=== PATIENT | male | born 1965 | race Hispanic/Latino ===

== ENCOUNTER 2018-02-16 12:49 | Emergency (ER) | payer BC ==
[2018-02-16 12:56] VITALS: BP 128/88; PULSE 66; RESP 18; TEMP 98.2; O2SAT 98
--- NOTE | 2018-02-16 13:13 | ED PDOC ---
Upper Extremity Pain/Injury Time Seen by Provider: 02/16/18 12:52 Chief Complaint (Nursing): Upper Extremity Problem/Injury History Per: Patient Onset/Duration Of Symptoms: Days (2) Current Symptoms Are (Timing): Still Present Severity: Moderate Exacerbating Factor(s): Movement Additional Complaint(s): Pain and swelling right hand after punching wall Tuesday night. Seen in ED [facility] and Dx'ed with fracture right hand/trapezius. Past Medical History Vital Signs: Last Vital Signs Temp 98.2 F 02/16/18 12:52 Pulse 66 02/16/18 12:52 Resp 18 02/16/18 12:52 BP 128/88 02/16/18 12:52 Pulse Ox 98 02/16/18 12:52 - Medical History PMH: No Chronic Diseases - Family History Family History: States: Unknown Family Hx - Home Medications Home Medications: Ambulatory Orders Medication Instructions Recorded No Known Home Med 02/16/18 - Allergies Allergies/Adverse Reactions: Allergies Allergy/AdvReac Type Severity Reaction Status Date / Time No Known Allergies Allergy Verified 02/16/18 12:52 Review of Systems Musculoskeletal: Positive for: Hand Pain Neurological: Positive for: Numbness. Negative for: Weakness Physical Exam - Physical Exam Appears: Positive for: Non-toxic, No Acute Distress Skin: Positive for: Normal Color, Warm, DRY Extremity: Positive for: Other (Right hand swelling and tenderness across carpal bones. Cap refill <2 sec. Unable to flex hand secondary to swelling. No parasthesias) Neurologic/Psych: Positive for: Alert, Oriented. Negative for: Motor/Sensory Deficits - ECG O2 Sat by Pulse Oximetry: 98 Medical Decision Making Medical Decision Making: Time 14:06 Right Wrist X-Ray FINDINGS: BONES: Hamate fracture seen on the lateral view but confirmed on the AP view. JOINTS: Normal. No dislocation. SOFT TISSUES: Soft tissue swelling with fracture fragments likely emanating from hamate bone. The finding is marked on the study for review. OTHER FINDINGS: None. IMPRESSION: Avulsion fracture hamate bone. Soft tissue swelling attests to the acuity of the fracture. Time: 14:02 Right Hand X-Ray FINDINGS: BONES: Normal. No fracture. JOINTS: Normal. No osteoarthritic changes. SOFT TISSUES: Soft tissue swelling dorsal aspect at the level of the metacarpals. No visulaized radiopaque/visualized foreign body. OTHER FINDINGS: None. IMPRESSION: Soft tissue swelling without acute articular or osseous abnormality. Scribe Attestation: Documented by Wilner Beasley, acting as a scribe for Rafat Joyce MD Disposition - Clinical Impression Clinical Impression: Hand fracture - Patient ED Disposition Is Patient to be Admitted: Transfer of Care - Disposition Disposition: Transfer of Care Disposition Time: 15:06 Condition: FAIR Forms: Impinj (Cameroonian) Patient Signed Over To: Darryl Marinelli
--- NOTE | 2018-02-16 14:06 | RAD ---
PROCEDURE: Right Hand Radiographs. HISTORY: trauma COMPARISON: None. FINDINGS: BONES: Normal. No fracture. JOINTS: Normal. No osteoarthritic changes. SOFT TISSUES: Soft tissue swelling dorsal aspect at the level of the metacarpals. No visulaized radiopaque/visualized foreign body. OTHER FINDINGS: None. IMPRESSION: Soft tissue swelling without acute articular or osseous abnormality.
--- NOTE | 2018-02-16 14:08 | RAD ---
PROCEDURE: Right Wrist Radiographs. HISTORY: Trauma. Anatomic area of interest: Lateral aspect right hand at the level of the proximal metacarpals COMPARISON: February 16, 2018. FINDINGS: BONES: Hamate fracture seen on the lateral view but confirmed on the AP view. JOINTS: Normal. No dislocation. SOFT TISSUES: Soft tissue swelling with fracture fragments likely emanating from hamate bone. The finding is marked on the study for review. OTHER FINDINGS: None. IMPRESSION: Avulsion fracture hamate bone. Soft tissue swelling attests to the acuity of the fracture.
--- NOTE | 2018-02-16 15:15 | ED PDOC ---
- ECG O2 Sat by Pulse Oximetry: 98 Medical Decision Making Medical Decision Making: Patient signed out to me by Dr. Joyce @ 15:00, pending CT EXT Upper w/o contrast RIGHT. Time: 1609 -- Patient was seen by Dr. Toribio in the ER who reviewed the images and casted. Patient is stable for discharge and will follow up with Dr. Toribio tomorrow. Scribe Attestation: Documented by Wilner Beasley, acting as a scribe for Darryl Marinelli MD. Provider Scribe Attestation: All medical record entries made by the Scribe were at my direction and personally dictated by me. I have reviewed the chart and agree that the record accurately reflects my personal performance of the history, physical exam, medical decision making, and the department course for this patient. I have also personally directed, reviewed, and agree with the discharge instructions and disposition. Disposition Counseled Patient/Family Regarding: Studies Performed, Diagnosis, Need For Followup - Clinical Impression Clinical Impression: Hand fracture - POA Present On Arrival: None - Disposition Referrals: Clinical Medical Transcriptionist Service [Outside] Titi Hayes MD [Medical Doctor] - Disposition: AGAINST MEDICAL ADVICE Disposition Time: 17:00 Condition: IMPROVED Additional Instructions: follow up with Dr Hayes tomorrow in his office. return to the ED with any worsening or concerning symptoms Prescriptions: Tramadol HCl [Ultram] 50 mg PO TID PRN #6 tablet PRN Reason: Pain, Moderate (4-7) Instructions: Hand Fracture Forms: TopVisible (Nepali)
--- NOTE | 2018-02-16 17:20 | CT ---
CT right wrist History: Fracture. Comparison: 02/16/2018 Technique: Multiple contiguous axial images were performed through the right wrist without the use of intravenous contrast. Subsequently, sagittal and coronal reformatted images were obtained. This CT exam was performed using one or more of the following dose reduction techniques: Automated exposure control, adjustment of the mA and/or kV according to patient size, and/or use of iterative reconstruction technique. Findings: Large comminuted distracted and displaced intra-articular fracture at the dorsal base of the 3rd metatarsal bone. Fracture fragment measures 1.2 centimeters. The fracture is displaced approximately 9 millimeters from the fracture site. Degenerative changes noted at the 1st carpometacarpal joint space with subluxation of the 1st metacarpal bone in relationship to the trapezium. 4 millimeter subchondral cyst formation within the proximal pole of the capitate. Question mild rotary subluxation of the lunate in relationship to the capitate bone. Clinical correlation. Prominent soft tissue swelling and edema seen at the dorsum of the wrist. Impression: 1. Large comminuted distracted and displaced intra-articular fracture at the dorsal base of the 3rd metatarsal bone. Fracture fragment measures 1.2 centimeters. The fracture is displaced approximately 9 millimeters from the fracture site. 2. Degenerative changes noted at the 1st carpometacarpal joint space with subluxation of the 1st metacarpal bone in relationship to the trapezium. 3. 4 millimeter subchondral cyst formation within the proximal pole of the capitate. 4. Question mild rotary subluxation of the lunate in relationship to the capitate bone. Clinical correlation. 5. Prominent soft tissue swelling and edema seen at the dorsum of the wrist.
== END 2018-02-16 16:30 | disposition home or self-care (01) ==
LOC: H.ER 12:49
DX: Z47.89 Encounter for other orthopedic aftercare (principal)

== ENCOUNTER 2018-04-06 10:36 | Inpatient (IN) | payer BC ==
[2018-04-06 10:45] VITALS: BMI 31.8
--- NOTE | 2018-04-06 11:10 | ED PDOC ---
Upper Extremity Pain/Injury Time Seen by Provider: 04/06/18 11:03 Chief Complaint (Nursing): Finger,Hand,&Wrist Chief Complaint (Provider): WRIST FX History Per: Patient (52 Y/O MALE WITH H/O WRIST FX 02/14 HERE FOR WRIST PAIN. PATIENT HAS BEEN IN PHYSICAL THERAPY AND FEELS IF BONE IS 'PROTRUDING' FROM SKIN. DENIES ANY FEVERS/CHILLS.) Past Medical History Reviewed: Historical Data, Nursing Documentation, Vital Signs Vital Signs: Last Vital Signs Temp 98 F 04/06/18 10:45 Pulse 82 04/06/18 10:45 Resp 16 04/06/18 10:45 BP 122/85 04/06/18 10:45 Pulse Ox 98 04/06/18 10:45 - Surgical History Surgical History: Tonsillectomy - Family History Family History: States: Unknown Family Hx - Home Medications Home Medications: Ambulatory Orders Medication Instructions Recorded No Known Home Med 04/06/18 - Allergies Allergies/Adverse Reactions: Allergies Allergy/AdvReac Type Severity Reaction Status Date / Time No Known Allergies Allergy Verified 02/16/18 12:52 Review of Systems ROS Statement: Except As Marked, All Systems Reviewed And Found Negative Physical Exam - Reviewed Nursing Documentation Reviewed: Yes Vital Signs Reviewed: Yes - Physical Exam Appears: Positive for: Well, Non-toxic, No Acute Distress Head Exam: Positive for: ATRAUMATIC, NORMAL INSPECTION, NORMOCEPHALIC Skin: Positive for: Normal Color, Warm, DRY Eye Exam: Positive for: EOMI, Normal appearance, PERRL ENT: Positive for: Normal ENT Inspection Neck: Positive for: Normal, Painless ROM Cardiovascular/Chest: Positive for: Regular Rate, Rhythm Respiratory: Positive for: CNT, Normal Breath Sounds Gastrointestinal/Abdominal: Positive for: Normal Exam, Soft Back: Positive for: Normal Inspection Extremity: Positive for: Normal ROM, Other (MILD SWELLING OF HAND. ABLE TO MOVE DIGITS. GOOD CAPILLARY REFILL. IN REMOVABLE VELCRO WRIST SPLINT.) Neurologic/Psych: Positive for: Alert, Oriented - Laboratory Results Result Diagrams: 04/06/18 11:45 04/06/18 11:45 - ECG O2 Sat by Pulse Oximetry: 98 - Progress ED Course And Treament: XRY WRIST RIGHT: IMPRESSION: A large fracture fragment is seen in the distal dorsal right wrist soft tissues suggestive of a fragment from intra create room. The fracture is oriented more perpendicular to the axis of the carpus than previously shown on 02/16/2018. No dislocation or subluxation or additional fracture appreciable. Soft tissue edema surrounds the risk for greater dorsally than at the volar side. Disposition - Clinical Impression Clinical Impression: Wrist fracture, right - Patient ED Disposition Is Patient to be Admitted: Yes - Disposition Disposition Time: 11:25 Condition: FAIR - Pt Status Changed To: Hospital Disposition Of: Inpatient - Admit Certification Admit to Inpatient:: After my assessment, the patient will require hospitalization for at least two midnights. This is because of the severity of symptoms shown, intensity of services needed, and/or the medical risk in this patient being treated as an outpatient.
[2018-04-06 12:03] LABS: BASO # 0.1 K/uL (0.0-0.2); BASO % 1.5 % (0.0-2.0); EOS # 0.2 K/uL (0.0-0.7); EOS % 3.6 % (0.0-4.0); HEMOGLOBIN 13.9 g/dL (12.0-18.0); LYMPH # 1.2 K/uL (1.0-4.3); LYMPH % 24.4 % (20.0-40.0); MEAN CELL VOLUME 94.5 fl (80.0-94.0); MEAN CORPUSCULAR HEMOGLOBIN 32.8 pg (27.0-31.0); MEAN CORPUSCULAR HGB CONC 34.7 g/dL (33.0-37.0); MEAN PLATELET VOLUME 7.7 fl (7.2-11.7); MONO # 0.4 K/uL (0.0-0.8); NEUT # 3.1 K/uL (1.8-7.0); NEUT % 62.5 % (50.0-75.0); NRBC % 0.3 % (0.0-0.0); RBC 4.25 Mil/uL (4.40-5.90); WHITE BLOOD COUNT 4.9 K/uL (4.8-10.8)
--- NOTE | 2018-04-06 12:11 | RAD ---
PROCEDURE: Right Wrist Radiographs. HISTORY: WRIST PAIN COMPARISON: Left wrist radiographs 02/16/2018. FINDINGS: BONES: A dorsal fracture fragment remains in distal row level of the dorsal soft tissues triangular in shape and oriented perpendicular to the plane of the carpus with the tip quite superficial in location likely reflecting ununited fracture of the triquetrum. Soft tissue edema is seen diffusely but on a moderate basis throughout the dorsal greater than low volar soft tissues. Dorsal hand soft tissue may have completely resolved. JOINTS: No subluxation or dislocation. SOFT TISSUES: As above. OTHER FINDINGS: None. IMPRESSION: A large fracture fragment is seen in the distal dorsal right wrist soft tissues suggestive of a fragment from intra create room. The fracture is oriented more perpendicular to the axis of the carpus than previously shown on 02/16/2018. No dislocation or subluxation or additional fracture appreciable. Soft tissue edema surrounds the risk for greater dorsally than at the volar side.
[2018-04-06 12:14] LABS: INR 1.1 (0.9-1.2); PARTIAL THROMBOPLASTIN TIME 28.1 Seconds (25.6-37.1); PROTHROMBIN TIME 12.1 Seconds (9.8-13.1)
[2018-04-06 12:20] LABS: BLOOD UREA NITROGEN 14 mg/dl (9-20); CALCIUM 9.3 mg/dL (8.4-10.2); GFR AFRICAN-AMERICAN > 60; GFR NON-AFRICAN AMERICAN > 60
[2018-04-06] MEDS ORDERED: Lidocaine 2% MPF (5 ml) Inj ONE (12:21)
[2018-04-06] MEDS ORDERED: Succinylcholine 200 mg/10 ml Inj IV ONE (13:34)
[2018-04-06] MEDS ORDERED: Midazolam 2 MG/2 ML VIAL ONE (13:34)
[2018-04-06] MEDS ORDERED: Propofol 10 mg/ml Inj (20 ML) ONE (13:34)
[2018-04-06] MEDS ORDERED: Lidocaine 2% PF (10 ml) Amp ONE (13:36)
[2018-04-06] MEDS ORDERED: ePHEDrine 50 mg/ml Inj ONE (13:38)
[2018-04-06] MEDS ORDERED: Lactated Ringer's 1,000 ML IV ONE (13:41)
[2018-04-06] MEDS ORDERED: Bupivacaine HCl 0.25% PF (30 ml) Inj IJ ONE ×2 (14:01)
[2018-04-06] MEDS ORDERED: Lidocaine 2% Inj (20ml) IJ ONE ×2 (14:01)
[2018-04-06] MEDS ORDERED: Lactated Ringer's 500 ML IV ONE (15:30)
[2018-04-06 15:37] VITALS: RESP 18; O2SAT 96
[2018-04-06 16:12] VITALS: BP 131/80; PULSE 80; TEMP 97.9
--- NOTE | 2018-04-07 02:54 | OP ---
PROCEDURE DATE: 04/06/2018 SURGEON: Titi Hayes MD PACKAGING SALES: Donis Uriostegui MD PREOPERATIVE DIAGNOSES: 1. Open fracture of right third metacarpal base. 2. Open wound 3 cm in length. PROCEDURE: 1. Adjacent tissue local flap closure 3 cm in length, 14465. 2. Open treatment of metacarpal base fracture with ostectomy, 27623. 3. Extensor carpi radialis longus, side to side transfer to extensor carpi radialis brevis, 40640. 4. Local debridement of open fracture of muscle tendon, bone and skin, 31274. TYPE OF ANESTHESIA: General and local. ESTIMATED BLOOD LOSS: Minimal. COMPLICATIONS: None. SPECIMENS: None. DISPOSITION: Stable to recovery room. INDICATION: A 52-year-old right hand dominant male who presents to [facility] after sustaining a direct impact hit to his right hand. The patient presents with pain and open fracture of his third metacarpal base. He was seen in the emergency room and taken to the operating room for above procedure. Risk and benefits of the procedure were explained. Risks included but not limited to bleeding, infection, tendon, nerve and vessel injury, instability, and potential need for additional surgery in the future. The patient understood the above risks and elected to proceed. He was taken to the operating room from the emergency room for above procedure. DESCRIPTION OF PROCEDURE: The patient was placed on the operating room table. After general anesthesia was given and prophylactic antibiotics, a well-padded nonsteroidal tourniquet was placed on the patient's right upper extremity. The extremity was then prepped and draped in the standard surgical fashion. The proposed incision was outlined. This was a curvilinear incision over the open wound of the third metacarpal base. The incision was outlined to perform rotational flap closure of the skin. The arm was elevated and exsanguinated. The tourniquet was inflated to 250 mmHg. An incision was made through the skin only. All superficial veins were cauterized. the displaced metacarpal base fracture had a sharp spike poking through the skin and open wound. There is also localized swelling, some joint fluid and partial laceration of the extensor carpi radialis brevis. Local debridement was performed with irrigation, rongeur and curette. The metacarpal base displaced fracture was removed by performing partial carpectomy with rongeur. The bone was rasped to smooth border with a rasp, thus finishing the open treatment of metacarpal fracture. Next, the extensor carpi radialis brevis was repaired with a side to side tendon transfer of extensor carpi radialis longus to extensor carpi radialis brevis with 4-0 Vicryl sutures. This increased stability to the third CMC joint. The rest of the wound was inspected and was intact. No further damage was identified. Tourniquet was deflated, hemostasis was obtained, and wound was closed by performing a rotational skin flap. Skin closed with 4-0 nylon sutures. Sterile dressing was applied consisting of fluffs, 4x4, and Bon. The patient tolerated the procedure well and was returned to recovery room in excellent condition. During the surgery, I was assisted by Dr. Donis Uriostegui, a board certified orthopedic surgeon whose help was needed to provide intra preoperative and postoperative safety for the patient. Titi Hayes MD SH[facility]
== END 2018-04-06 16:20 | disposition home or self-care (01) | DRG 501 ==
LOC: H.ER 10:36 → H.ERHOLD 11:25
PROVIDERS: ADMIT Orthopaedic Surgery; ATTEND Orthopaedic Surgery
PROC: 0PBM0ZZ Excision of Right Carpal, Open Approach (ICD-10-PCS; 2018-04-06)
PROC: 0PBH0ZZ Excision of Right Radius, Open Approach (ICD-10-PCS; 2018-04-06)
PROC: 0XQG0ZZ Repair Right Wrist Region, Open Approach (ICD-10-PCS; 2018-04-06)
PROC: 0LX50ZZ Transfer Right Lower Arm and Wrist Tendon, Open Approach (ICD-10-PCS; principal; 2018-04-06 13:00)
DX: S62.312A Displaced fracture of base of third metacarpal bone, right hand, initial encounter for closed fracture (principal); S66.328A Laceration of extensor muscle, fascia and tendon of other finger at wrist and hand level, initial encounter; W22.8XXA Striking against or struck by other objects, initial encounter; S61.501A Unspecified open wound of right wrist, initial encounter